=== PATIENT | female | born 1990 | race Hispanic/Latino ===

== ENCOUNTER 2022-05-29 14:26 | Emergency (ER) | payer BC, OTHER ==
[2022-05-29 15:58] LABS: Urine Blood Negative (Negative); Urine Glucose Negative (Negative); Urine Protein 1+ (Negative)
[2022-05-29 16:19] LABS: Absolute Lymphocytes (CBC) 0.5 K/uL (0.7-4.9); Lymphocytes % 5.6 % (15.3-44.8); MCV 85.7 fL (80-100)
[2022-05-29] MEDS ORDERED: NA CHLORIDE 0.9% 1,000 ML ONE (16:19)
[2022-05-29 16:35] LABS: Potassium 3.2 mmol/L (3.5-5.1)
--- NOTE | 2022-05-29 17:42 | EDPHYS ---
Physician Documentation [facility] Name: Eric Vaca Age: 31 yrs Sex: Female : 1990 Arrival Date: 05/29/2022 Time: 14:28 Bed 9 Private MD: ED Physician Belkis Sibley HPI: 05/30 00:22 This 31 yrs old Female presents to ER via Ambulatory with complaints of Fever, kb bodyaches, 31 wks preg. 00:22 The patient or guardian reports flu symptoms, low-grade fever, myalgias. Onset: The kb symptoms/episode began/occurred yesterday. Severity of symptoms: At their worst the symptoms were moderate, in the emergency department the symptoms are unchanged. Modifying factors: The symptoms are alleviated by nothing, the symptoms are aggravated by nothing. Associated signs and symptoms: Pertinent positives: fever, Pertinent negatives: chest pain, diarrhea, ear ache, nausea, rhinorrhea, sore throat, vomiting. The patient has not experienced similar symptoms in the past. The patient has not recently seen a physician. Patient reports fever, body aches, headache that started yesterday.. Historical: - Allergies: 05/29 15:30 Azithromycin; aa5 - Home Meds: 15:45 Plaquenil 200 mg Oral tab 2 tabs once daily [Active]; Vitamin Oral [Active]; aa5 progesterone micronized 200 mg oral cap once daily [Active]; Super B Maxi Complex 0.4 mg oral tab [Active]; ferrous gluconate 225 mg (27 mg iron) oral tab daily [Active]; - PMHx: 15:45 Anemia; aa5 15:45 Sjogren Syndrome; aa5 - PSHx: 15:45 section; aa5 - Immunization history:: Adult Immunizations unknown. - Social history:: Smoking status: Patient denies any tobacco usage or history of. ROS: 05/30 00:21 Respiratory: Negative for shortness of breath, cough, wheezing, and pleuritic chest kb pain. Constitutional: Positive for body aches, fatigue, fever, malaise. All other systems are negative. 00:22 Neuro: Positive for headache. kb Exam: 00:21 Constitutional: This is a well developed, well nourished patient who is awake, alert, kb and in no acute distress. Head/Face: Normocephalic, atraumatic. ENT: Moist Mucous membranes Cardiovascular: Regular rate and rhythm with a normal S1 and S2. No gallops, murmurs, or rubs. No pulse deficits. Respiratory: Respirations even and unlabored. No increased work of breathing. Talking in full sentences Abdomen/GI: Soft, non-tender. No distention Skin: Warm, dry with normal turgor. Normal color. MS/ Extremity: Pulses equal, no cyanosis. Neurovascular intact. Full, normal range of motion. Neuro: Awake and alert, GCS 15, oriented to person, place, time, and situation. Moves all extremities. Normal gait. Psych: Awake, alert, with orientation to person, place and time. Behavior, mood, and affect are within normal limits. Vital Signs: 05/29 15:43 BP 108 / 67; Pulse 128; Resp 20 S; Temp 99.5(O); Pulse Ox 100% on R/A; Weight 111.13 kg aa5 (R); Height 5 ft. 5 in. (165.10 cm) (R); 15:43 Body Mass Index 40.77 (111.13 kg, 165.10 cm) aa5 MDM: 14:36 ED course: Pt went to [facility] to be checked r/t decreased movement. Will evaluate pt kb when she returns. 16:00 Patient medically screened. kb 05/30 00:21 Data reviewed: vital signs, nurses notes. Data interpreted: Pulse oximetry: on room air kb is 100 %. Interpretation: normal. Counseling: I had a detailed discussion with the patient and/or guardian regarding: the historical points, exam findings, and any diagnostic results supporting the discharge/admit diagnosis, lab results, the need for outpatient follow up, a family practitioner, to return to the emergency department if symptoms worsen or persist or if there are any questions or concerns that arise at home. 05/29 14:32 Order name: Flu; Complete Time: 16:50 kb 05/29 15:51 Order name: SARS-COV-2 RT PCR (Document "Date of Onset" if Symptomatic); Complete Time: aa5 17:41 05/29 15:58 Order name: Urine Dipstick-Ancillary; Complete Time: 16:01 EDMS 05/29 16:00 Order name: CBC with Diff; Complete Time: 16:30 kb 05/29 16:00 Order name: Basic Metabolic Panel; Complete Time: 16:39 kb 05/29 16:00 Order name: IV Start; Complete Time: 16:08 kb Administered Medications: 05/29 16:15 Drug: NS 0.9% 1000 ml Route: IV; Rate: 1000 ml; Site: right antecubital; aa5 Disposition: 19:12 STAFF ATTESTATION STATEMENT: I was immediately available onsite in the emergency sd2 department for consultation in the care of this patient. I did not see or examine this patient. Belkis Sibley MD. Disposition Summary: 05/29/22 17:42 Discharge Ordered Location: Home kb Condition: Stable kb Diagnosis - Coronavirus infection, unspecified kb Followup: kb - With: Emergency Department - When: As needed - Reason: Worsening of condition Followup: kb - With: Private Physician - When: 2 - 3 days - Reason: Recheck today's complaints, Continuance of care, Re-evaluation by your physician Discharge Instructions: - Discharge Summary Sheet kb - Viral Respiratory Infection, [id number] kb - COVID-19 kb Forms: - Medication Reconciliation Form kb - Thank You Letter kb - Antibiotic Education kb - Prescription Opioid Use kb Signatures: Dispatcher [employer] EDMS Barbie Craft, POPPY HERRERAP-Geraldine Avila, RN RN aa5 Belkis Sibley MD MD sd2 Corrections: (The following items were deleted from the chart) 15:51 14:33 COVID 19 CPL+MR.LAB.BRZ ordered. EDMS EDMS 15:55 15:53 COVID 19 CPL ordered. EDMS EDMS
--- NOTE | 2022-05-29 17:42 | ER ---
Nurse's Notes [facility] Name: Eric Vaca Age: 31 yrs Sex: Female : 1990 Arrival Date: 05/29/2022 Time: 14:28 Bed 9 Private MD: Diagnosis: Coronavirus infection, unspecified Presentation: 05/29 14:35 Note pt requested to be checked out at [facility] due to decreased movement , pt not in iw lobby at this time. 15:43 Chief complaint: Patient states: Reports being 31 weeks , pt back from [facility], aa5 Fetus was cleared by L\T\D. Reports headache, body aches, fever up to 101.7*F that began yesterday. Pt reports decreased appetite today. Coronavirus screen: headache, muscle pain. Ebola Screen: Patient denies travel to an Ebola-affected area in the 21 days before illness onset. Initial Sepsis Screen: Does the patient meet any 2 criteria? HR > 90 bpm. Does the patient have a suspected source of infection? Yes:. Risk Assessment: Do you want to hurt yourself or someone else? Patient reports no desire to harm self or others. Onset of symptoms was May 28, 2022. 15:43 Acuity: CHARAN 3 aa5 15:43 Method Of Arrival: Ambulatory aa5 Historical: - Allergies: 15:30 Azithromycin; aa5 - Home Meds: 15:45 Plaquenil 200 mg Oral tab 2 tabs once daily [Active]; Vitamin Oral [Active]; aa5 progesterone micronized 200 mg oral cap once daily [Active]; Super B Maxi Complex 0.4 mg oral tab [Active]; ferrous gluconate 225 mg (27 mg iron) oral tab daily [Active]; - PMHx: 15:45 Anemia; aa5 15:45 Sjogren Syndrome; aa5 - PSHx: 15:45 section; aa5 - Immunization history:: Adult Immunizations unknown. - Social history:: Smoking status: Patient denies any tobacco usage or history of. Screenin:03 Abuse screen: Denies threats or abuse. Denies injuries from another. Nutritional hb screening: No deficits noted. Tuberculosis screening:. Fall Risk None identified. Assessment: 16:15 General: Appears in no apparent distress. Behavior is calm, cooperative. Pain: Pain hb currently is 2 out of 10 on a pain scale. Neuro: Level of Consciousness is awake, alert, obeys commands, Oriented to person, place, time, situation. Cardiovascular: Patient's skin is warm and dry. Respiratory: Respiratory pattern is regular, symmetrical. GI: No signs and/or symptoms were reported involving the gastrointestinal system. : No signs and/or symptoms were reported regarding the genitourinary system. EENT: No signs and/or symptoms were reported regarding the EENT system. Derm: Skin is pink, warm \T\ dry. Musculoskeletal: Reports body aches. 17:03 Reassessment: Patient appears in no apparent distress at this time. Patient and/or hb family updated on plan of care and expected duration. Pain level reassessed. Patient is alert, oriented x 3, equal unlabored respirations, skin warm/dry/pink. Vital Signs: 15:43 BP 108 / 67; Pulse 128; Resp 20 S; Temp 99.5(O); Pulse Ox 100% on R/A; Weight 111.13 kg aa5 (R); Height 5 ft. 5 in. (165.10 cm) (R); 15:43 Body Mass Index 40.77 (111.13 kg, 165.10 cm) aa5 ED Course: 14:28 Patient arrived in ED. am2 14:32 Barbie Craft [facility]-C [facility]. kb 14:32 Belkis Sibley MD is Attending Physician. kb 15:43 Arm band placed on. aa5 15:45 Triage completed. aa5 16:05 Initial lab(s) drawn, by de, sent to lab. Inserted saline lock: 20 gauge in right aa5 antecubital area, using aseptic technique. Blood collected. 17:00 Patient has correct armband on for positive identification. hb 17:46 Jennifer Jarvis, RN is Primary Nurse. hb 18:01 No provider procedures requiring assistance completed. IV discontinued, intact, hb bleeding controlled, No redness/swelling at site. Administered Medications: 16:15 Drug: NS 0.9% 1000 ml Route: IV; Rate: 1000 ml; Site: right antecubital; aa5 Medication: 18:02 VIS not applicable for this client. hb Outcome: 17:42 Discharge ordered by . kb 18:01 Discharged to home ambulatory. hb 18:01 Condition: stable 18:01 Discharge instructions given to patient, Instructed on discharge instructions, follow up and referral plans. medication usage, Demonstrated understanding of instructions, follow-up care, medications. 18:02 Patient left the ED. hb Signatures: Barbie Craft, VENEER GLUER-C VENEER GLUER-Ckb Vicky Oleary RN RN Geraldine Barnes RN RN aa5 Jennifer Jarvis RN RN Lurdes Heath am2 Corrections: (The following items were deleted from the chart) 15:32 15:30 Chief complaint: aa5 aa5 15:32 15:30 Arm band placed on aa5 aa5 15:50 15:43 Chief complaint: Patient states: back from [facility], Fetus was cleared by L\T\[facility]. Reports aa 5 headache, body aches, fever up to 101.7*F that began yesterday. Pt reports decreased appetite today. aa5
[2022-05-29 19:39] VITALS: BP 108/67; TEMP 99.5; O2SAT 100
== END 2022-05-29 18:02 | disposition home or self-care (01) ==
LOC: ER 14:26
DX: O98.513 Other viral diseases complicating pregnancy, third trimester (principal); U07.1 COVID-19; O99.013 Anemia complicating pregnancy, third trimester; Z3A.31 31 weeks gestation of pregnancy; Z88.1 Allergy status to other antibiotic agents
CPT/HCPCS: 85025; 80048; 36415; 81003; 87804 ×2; U0003; J7030; 99283